=== PATIENT | male | born 1980 | race Caucasian/White ===

== ENCOUNTER 2019-12-30 23:31 | Emergency (ER) | payer SELFPAY ==
[~2019-12-30] VITALS: Ht 167.6 cm; Wt 88.9 kg
[2019-12-30 23:38] VITALS: Ht 167.6 cm; Wt 88.9 kg
[2019-12-31 03:15] VITALS: BP 102/67
== END 2019-12-31 03:15 | disposition home or self-care (01) ==
LOC: ED 23:31
DX: J02.8 Acute pharyngitis due to other specified organisms (principal)

== ENCOUNTER 2020-08-13 03:50 | Emergency (ER) | payer MEDICAID, SELFPAY ==
[~2020-08-13] VITALS: Ht 160 cm; Wt 77.1 kg
[2020-08-13 03:51] VITALS: Ht 160 cm; Wt 77.1 kg
[2020-08-13 05:58] VITALS: BP 124/82
== END 2020-08-13 05:58 | disposition home or self-care (01) ==
LOC: ED 03:50
DX: U07.1 COVID-19 (principal)
CPT/HCPCS: U0003